=== PATIENT | female | born 1945 | race Caucasian/White ===

== ENCOUNTER → 2016-08-21 | Outpatient (CLI) | payer MEDICARE, BC ==
[~2016-08-21] MED LIST: CRESTOR5 MG PO; HCTZ 25MG TAB25 MG PO; LEVAQUIN 5500 MG/TA1 PO; MULTIPLE VITAMI1 CAP PO; PREDNISONE10 MG PO; PRILOTC PO; PROBIOTIC FORMU1 CAP PO; PROZAC 10MG10 MG PO; THEO-24 20200 MG/CAP PO; VIT D; VITAMIN D31000 IU PO; XOPENEX HF0.045 MG/A IH; ZESTRIL 10MG10 MG PO
== END ==
LOC: MC.RAD 11:40
DX: Z12.31 Encounter for screening mammogram for malignant neoplasm of breast (principal); D24.2 Benign neoplasm of left breast; D24.1 Benign neoplasm of right breast

== ENCOUNTER → 2017-09-09 | Outpatient (CLI) | payer MEDICARE, BC | LOC: MC.RAD 11:30 | DX: Z12.31 Encounter for screening mammogram for malignant neoplasm of breast (principal) ==

== ENCOUNTER → 2018-09-22 | Outpatient (CLI) | payer MEDICARE, BC | LOC: MC.RAD 10:44 | DX: Z12.31 Encounter for screening mammogram for malignant neoplasm of breast (principal); R92.0 Mammographic microcalcification found on diagnostic imaging of breast ==

== ENCOUNTER → 2018-09-28 | Outpatient (CLI) | payer MEDICARE, BC | LOC: MC.RAD 14:00 | DX: R92.0 Mammographic microcalcification found on diagnostic imaging of breast (principal) ==

== ENCOUNTER → 2021-09-02 | Outpatient (CLI) | payer MEDICARE, BC | LOC: MC.RAD 14:00 | DX: N64.9 Disorder of breast, unspecified (principal) ==

== ENCOUNTER → 2021-12-08 | Outpatient (CLI) | payer MEDICARE, BC | LOC: MC.RAD 10:00 | DX: N63.12 Unspecified lump in the right breast, upper inner quadrant (principal); R92.0 Mammographic microcalcification found on diagnostic imaging of breast; R92.8 Other abnormal and inconclusive findings on diagnostic imaging of breast ==

== ENCOUNTER → 2021-12-10 | Outpatient (CLI) | payer MEDICARE, BC | LOC: MC.RAD 06:55 | DX: N63.20 Unspecified lump in the left breast, unspecified quadrant (principal); R92.1 Mammographic calcification found on diagnostic imaging of breast ==

== ENCOUNTER → 2022-01-22 | Outpatient (CLI) | payer MEDICARE, BC ==
[~2022-01-22] MED LIST changes: +COZAAR 25MG25 MG/TAB PO; +PRESERVISION1 SGL PO; +VIVLODEX10 MG PO
== END ==
LOC: MC.RAD 12:52
DX: C50.312 Malignant neoplasm of lower-inner quadrant of left female breast (principal)
CPT/HCPCS: A9520; C1769

== ENCOUNTER 2023-07-19 03:32 | Inpatient (IN) | payer MEDICARE, BC ==
[~2023-07-19] VITALS: Ht 152.4 cm; Wt 67.2 kg
[2023-07-19] VITALS (8 sets, daily range): BP systolic 96–135; BP diastolic 43–66; PULSE 75–92; TEMP 97.4–98.9
[~2023-07-19 03:32] MED LIST changes: +ACIDOPHILIS PO; +CRESTOR 10MG10 MG PO; -CRESTOR5 MG PO; -PROBIOTIC FORMU1 CAP PO
[2023-07-19 04:10] LABS: HEMATOCRIT 34.9 % (37.0-47.0); HEMOGLOBIN 11.3 g/dl (12.5-16.0); MEAN CELL VOLUME 86 fl (80.0-100.0); MEAN CORPUSCULAR HEMOGLOBIN 28 pg (27-31); MEAN CORPUSCULAR HGB CONC 32 g/dl (33.0-37.0); MEAN PLATELET VOLUME 9.6 fl (7.4-10.4); PLATELET COUNT 333 K/mm3 (130-400); RED BLOOD COUNT 4.07 M/mm3 (4.10-5.30); REDCELL DISTRIBUTION WIDTH-CV 15.5 % (11.5-14.5)
[2023-07-19 04:23] LABS: ANISOCYTOSIS 1+; BAND 1 % (0-10); HYPOCHROMIA 1+; LYMPHOCYTE 4 % (20.0-51.0); NEUTROPHILS 91 % (42.0-75.2); PLATELET ESTIMATE NORMAL (NORMAL)
[2023-07-19 04:24] LABS: OVALOCYTES 1+
[2023-07-19 04:58] LABS: ALBUMIN 2.8 gm/dL (3.4-4.8); BILIRUBIN,TOTAL 1.4 mg/dL (0.2-1.2); CALCIUM 8.9 mg/dL (8.4-10.2); CREATININE, serum 1.01 mg/dL (0.57-1.11); TOTAL PROTEIN 6.1 gm/dL (6.2-8.1)
[2023-07-19 04:59] LABS: POTASSIUM 2.6 mmol/L (3.5-4.5)
--- NOTE | 2023-07-19 08:50 | NUR ---
REPORT RECEVIED FROM JOHAN IN ER APPROX 0800, RN NOTIFIED THIS NURSE THAT MED REC WASNT DONE AND THAT WILL BRING PTS MED LIST TO THE FLOOR. PT ON THE FLOOR AND TRANSFERRED TO BED INDEPENDENTLY. PT ON ROOM AIR AND DENIES PAIN OR SHORTNESS OF BREATH AT THIS TIME. FINE CRACKLES HEARD DURING ASSESSMENT. IV TO LEFT AC AND RIGHT WRIST FLUSH WELL WITHOUT COMPLICATIONS. PT DENIES NEEDS AT THIS TIME. PT ORIENTED TO ROOM AND BREAKFAST ORDERED. BED IN LOWEST POSITION, CALL LIGHT IN REACH
[2023-07-19] MEDS ORDERED: ARIMIDEX1 MG PO (09:38)
--- NOTE | 2023-07-19 10:15 | NUR ---
PT REFUSED LOVENOX. PT EDUCATED ON MEDICATION INCLUDING RISK FOR BLOOD CLOTS. PT AMBULATING IN ROOM INDEPENDENTLY AND DENIES NEED FOR LOVENOX AT THIS TIME
--- NOTE | 2023-07-19 12:05 | NUR ---
LAB CALLED AND NOTIFIED THIS NURSE THAT GI PANEL CAME BACK NEGATIVE BUT POSITIVE FOR CDIFF. LAB ASKED THIS NURSE IF A CDIFF ANTIGEN COULD BE ORDERED. DR RIVERA NOTIFIED AND GAVE THIS NURSE A VERBAL ORDER TO PUT IN CDIFF ANTIGEN. PT PLACED IN CONTACT PRECAUTIONS
--- NOTE | 2023-07-19 12:05 | NUR ---
MED REC DONE. PT REPORTS NO LONGER TAKING MELOXICAM PER DR LEDBETTER
[2023-07-19 14:29] LABS: CLOSTRIDIUM DIFF A/B NEG
--- NOTE | 2023-07-19 17:39 | NUR ---
PT GIVEN LAST DOSE OF ORAL POTASSIUM. DR RIVERA NOTIFIED. THIS NURSE ASKED IF PT NEEDED A POTASSIUM RECHECK TODAY AND PROVIDER STATED "CHECK 30 MINS AFTER LAST DOSE"
--- NOTE | 2023-07-19 23:58 | NUR ---
patient lying in bed, alert and oriented x4. pt denies chest pain and shortness of breath. IV in RW and in LAC are patent, sites are clean dry and intact. no skin abnormalities noted. pt ambulating in room with steady gait. pt has no further needs, questions, or concerns at this time. call light within reach, will continue to monitor.
[2023-07-20] VITALS (12 sets, daily range): BP systolic 112–158; BP diastolic 48–73; PULSE 87–98; TEMP 98.2–99
[2023-07-20 06:56] LABS: CREATININE, serum 0.65 mg/dL (0.57-1.11); MAGNESIUM 1.6 mg/dL (1.6-2.6); POTASSIUM 4.3 mmol/L (3.5-4.5)
[2023-07-20 08:06] LABS: BASO % 0.2 % (0.0-2.0); EOS # 0.1 K/mm3 (0.0-0.7); EOS % 0.8 % (0.0-4.0); GRAN # 13.6 K/mm3 (1.4-6.5); LYMPH # 1.2 K/mm3 (1.2-3.4); LYMPH % 7.4 % (20.0-51.0); MEAN CELL VOLUME 86 fl (80.0-100.0); MEAN CORPUSCULAR HGB CONC 32 g/dl (33.0-37.0); MEAN PLATELET VOLUME 9.6 fl (7.4-10.4); MONO % 5.9 % (1.7-9.3); PLATELET COUNT 287 K/mm3 (130-400); RED BLOOD COUNT 3.52 M/mm3 (4.10-5.30); REDCELL DISTRIBUTION WIDTH-CV 15.9 % (11.5-14.5)
[2023-07-20 08:07] LABS: HEMATOCRIT 30.3 % (37.0-47.0); HEMOGLOBIN 9.7 g/dl (12.5-16.0); MEAN CORPUSCULAR HEMOGLOBIN 28 pg (27-31)
--- NOTE | 2023-07-20 08:30 | NUR ---
PT SITTING IN BED UPON ENTERING. ASSESSMENT DONE, MEDS GIVEN PER ORDER. POTASSIUM 4.3 AND OKAY TO DISCONTINUE FLUIDS PER DR RIVERA. PT DENIES PAIN OR DISCOMFORT AT THIS TIME. PT REFUSED LOVENOX, THIS NURSE EDUCATED PT ON RISKS AND PT VERBALIZED UNDERSTANDING. LEFT LOWER LOBES COARSE CRACKLES HEARD DURING ASSESSMENT. SWELLING NOTED TO PTS FINGERS AND THIS NURSE ASKED PT IF SHE WOULD LIKE HER RINGS OFF. PT HAS 2 GOLD RINGS. BOTH REMOVED WITH SOAP AND PUT IN A CLEAR CUP ON PTS BEDSIDE TABLE. PT OKAY WITH THIS AND DENIES NEEDS AT THIS TIME. CALL LIGHT IN REACH, BED IN LOWEST POSITION
--- NOTE | 2023-07-20 10:32 | NUR ---
tree worker met with patient and her , Nazario, P# [phone] to discuss discharge planning. PCP is Dr. Parker and preferred pharmacy is [facility]. Patient has no issues affording medications at this time. Insurance is Medicare and [employer] [facility]. Patient reports she has a DPOA-HC which appoints her , Nazario, as DPOA-HC. Nazario expressed he would bring a copy when he returns from their home. Patient reports she has no DME at home and is independent with [employer]. Patient has a form of transportation to get to and from appointments. Patient would like to return home at time of discharge. Discharge Plan: Home
--- NOTE | 2023-07-20 11:48 | NUR ---
PT PUT RINGS BACK. THIS NURES REMINDED PT OF SWELLING THIS AM AND SHE STATED "ITS OKAY I DONT THINK ITS GOING TO BE THAT BAD". WHILE IN THE ROOM PT NOTED TO HAVE A NEW NONPRODUCTIVE COUGH. 2GRAMS OF MAGNESIUM STARTED PER ORDER. PT AMBULATED TO BATHROOM INDEPENDENTLY WITHOUT ISSUES, GAIT STEADY. PT DENIES NEEDS AT THIS TIME
--- NOTE | 2023-07-20 16:00 | NUR ---
AT NURSES STATION IN CONTACT PPE. EDUCATED ON REMOVING THIS BEFORE LEAVING THE ROOM AND COMPLETING HAND HYGIENE, HE VERBALIZED UNDERSTANDING. TOLD THIS NURSE THAT PT IS STATING THAT SHE IS LEAVING. UPON ENTERING PT IS IN THE PROCESS OF UNDRESSING AND STATES SHES LEAVING. THIS NURSE NOTIFIED PT THAT SHE WILL BE IN THE HOSPITAL ANOTHER NIGHT FOR A PROCEDURE TOMORROW AND PT VERBALIZES UNDERSTANDING. PT HAS BEEN FORGETFUL THROUGHOUT THE SHIFT AND STATES THAT THIS IS HER BASELINE. PT ORIENTED TO PERSON AND TIME BUT STATES THAT SHES IN [place]. PT REORIENTED APPROPRIATELY. PT ENCOURAGED FLUIDS MEALS. PT REPORTS SHE DOESNT LIKE THE FOOD HERE AND THATS WHY SHES NOT EATING MUCH. PT HAS NO OBVIOUS NEEDS AT THIS TIME
--- NOTE | 2023-07-20 21:30 | NUR ---
Patient resting in bed. Denies any pain or needs at this time. Encouraged patient to eat food. Patient ate a little more of her dinner before being done for the evening. Assessment complete. IV in left AC flushes easily with no complcations. IV in right wrist removed due to leaking and not infusing in the vein. Call light and personal items in reach. Bed in low position and bed alarm on.
[2023-07-21] VITALS (13 sets, daily range): BP systolic 132–155; BP diastolic 55–84; PULSE 88–98; TEMP 98–100.2
--- NOTE | 2023-07-21 06:18 | NUR ---
Patient resting in bed. Denies any pain or needs. Patient remians NPO for procedure today with a few sips of water with morning meds. Patient had an uneventful evening. Call light and personal items in reach. Bed in low position.
[2023-07-21 06:53] LABS: BASO % 0.3 % (0.0-2.0); EOS # 0.1 K/mm3 (0.0-0.7); EOS % 0.9 % (0.0-4.0); GRAN # 12.4 K/mm3 (1.4-6.5); GRAN % 86.3 % (42.2-75.2); LYMPH # 0.9 K/mm3 (1.2-3.4); LYMPH % 6.2 % (20.0-51.0); MEAN CELL VOLUME 85 fl (80.0-100.0); MEAN CORPUSCULAR HEMOGLOBIN 28 pg (27-31); MEAN CORPUSCULAR HGB CONC 32 g/dl (33.0-37.0); MEAN PLATELET VOLUME 9.3 fl (7.4-10.4); MONO # 0.8 K/mm3 (0.1-0.6); MONO % 5.7 % (1.7-9.3); PLATELET COUNT 333 K/mm3 (130-400); RED BLOOD COUNT 3.63 M/mm3 (4.10-5.30); REDCELL DISTRIBUTION WIDTH-CV 15.6 % (11.5-14.5)
[2023-07-21 06:57] LABS: HEMATOCRIT 30.9 % (37.0-47.0)
[2023-07-21 07:08] LABS: CALCIUM 9.2 mg/dL (8.4-10.2); CREATININE, serum 0.65 mg/dL (0.57-1.11); POTASSIUM 3.8 mmol/L (3.5-4.5)
--- NOTE | 2023-07-21 10:38 | NUR ---
SHIFT ASSESSMENT COMPLETE. PATIENT RESTING IN BED STATES SHE JUST FEELS TIRED TODAY.NALINI HAD A SLIGHT FEVER 100.3 THIS MORNING, TYLENOL GIVEN PER ORDERS. PATIENT NPO STATUS FOR POSSIBLE EGD TODAY. ALL MORNING MEDS GIVEN PER ORDERS. CONTACT AND CHEMO PRECAUTIONS IN PLACE. CALL LIGHT IN REACH
[2023-07-22] VITALS (12 sets, daily range): BP systolic 132–168; BP diastolic 61–88; PULSE 86–92; TEMP 97.5–98.1
--- NOTE | 2023-07-22 01:25 | NUR ---
PT ALERT AND ORIENTED X2-3. UPON ASSUMING CARE FOR THIS PATIENT SHE IS IN BED AND HAS NORMAL SKIN COLOR AND PER REPORT HAD MILD TEMP ELEVATION. UPON RECHECK WAS FOUND TO BE 100.1, MEDICATED WITH TYLENOL TEMP WNL ONCE RECHECKED. SHIFT ASSESSMENT COMPLETE, MEDICATED PER EMAR. DENIES ANY PAIN AT THIS TIME. PT IS BRADYCARDIC AND IS MONITORED BY TELE. INT TO RIGHT FOREARM, FLUSHING WELL. PLACED ON WATERPROOFER TONIGHT AROUND 2230. EVEN, UNLABORED RESPR. DENIES FURTHER NEEDS AT THIS TIME. CALL LIGHT WITHIN REACH.
--- NOTE | 2023-07-22 03:52 | NUR ---
Notified by tele pt is sinus tacky. Upon checking on pt she was up in restroom. Denies chest pain, states "felt fluttery". No dizziness or nausea.
[2023-07-22 06:57] LABS: BASO % 0.3 % (0.0-2.0); EOS # 0.2 K/mm3 (0.0-0.7); EOS % 1.3 % (0.0-4.0); GRAN # 9.1 K/mm3 (1.4-6.5); GRAN % 78.6 % (42.2-75.2); LYMPH # 1.2 K/mm3 (1.2-3.4); LYMPH % 10.2 % (20.0-51.0); MEAN CELL VOLUME 83 fl (80.0-100.0); MEAN CORPUSCULAR HGB CONC 33 g/dl (33.0-37.0); MEAN PLATELET VOLUME 8.9 fl (7.4-10.4); PLATELET COUNT 303 K/mm3 (130-400); RED BLOOD COUNT 3.45 M/mm3 (4.10-5.30); REDCELL DISTRIBUTION WIDTH-CV 15.5 % (11.5-14.5)
[2023-07-22 06:58] LABS: HEMATOCRIT 28.7 % (37.0-47.0); HEMOGLOBIN 9.4 g/dl (12.5-16.0); MEAN CORPUSCULAR HEMOGLOBIN 27 pg (27-31)
[2023-07-22 07:22] LABS: CALCIUM 9.1 mg/dL (8.4-10.2); CREATININE, serum 0.61 mg/dL (0.57-1.11); POTASSIUM 3.6 mmol/L (3.5-4.5)
--- NOTE | 2023-07-22 08:00 | NUR ---
SHIFT ASSESSMENT COMPLETE. PATIENT UP SITTING ON BENCH IN YOUR WITH AT BEDSIDE. PATIENT CURRENTLY NPO STATUS FOR EGD TODAY. MORNING MEDS HELD TILL AFTER EGD THIS AFTERNOON. PATIENT HAS NO REQUEST OR COMPLAINTS AT THIS TIME. CALL LIGHT IN REACH.
[2023-07-22] MEDS ORDERED: CEPHALEXIN500 M1 PO (10:31)
[2023-07-22] MEDS ORDERED: MONODOX100 PO (10:31)
[2023-07-22] MEDS ORDERED: VANCOCIN H250 MG/CAP PO (10:31)
--- NOTE | 2023-07-22 11:08 | NUR ---
TELEMENTRY TECH CALLED STATING PATIENTS HR IN THE 150'S. NURSE CHECKED ON PATIENT AND PATIENT WAS SLEEPING. CONTACTED ISAI VIDAL AND EKG WAS ORDERED.
--- NOTE | 2023-07-22 12:15 | NUR ---
PATIENT ARRIVED FROM EGD. AMBULATED IND. FROM BED TO ROOM. VSS. PATIENT RESTING IN BED WITH AT BEDSIDE. CALL LIGHT IN REACH
--- NOTE | 2023-07-22 16:33 | NUR ---
travelers' aid worker met with patient and her to review the important message from Medicare regarding patient's rights. Patient understood and did not have any questions. Patient signed the form, SW made a copy, placed original in the chart and provided a copy to the patient. Discharge Plan: Home
== END 2023-07-22 15:30 | disposition home or self-care (01) | DRG 195 ==
LOC: COL.ER 03:32 → MEDICAL 07:18
PROVIDERS: Emergency Medicine; ADMIT Internal Medicine
DX: J18.9 Pneumonia, unspecified organism (principal); E87.6 Hypokalemia; K52.9 Noninfective gastroenteritis and colitis, unspecified; Z11.52 Encounter for screening for COVID-19; D64.9 Anemia, unspecified; R91.1 Solitary pulmonary nodule; K29.70 Gastritis, unspecified, without bleeding; K29.80 Duodenitis without bleeding; I10 Essential (primary) hypertension; F32.A Depression, unspecified; E78.5 Hyperlipidemia, unspecified; E83.42 Hypomagnesemia
CPT/HCPCS: J0696; J1650; J1885; J2704; J3475; J3480; J7030; Q9967

== ENCOUNTER → 2023-12-09 | Outpatient (CLI) | payer MEDICARE, BC ==
[~2023-12-09] MED LIST changes: +ARIMIDEX1 MG PO; +CEPHALEXIN500 M1 PO; +MONODOX100 PO; +VANCOCIN H250 MG/CAP PO
== END ==
LOC: MC.RAD 08:00
DX: Z12.31 Encounter for screening mammogram for malignant neoplasm of breast (principal)

== ENCOUNTER 2024-03-14 11:15 | Outpatient (RCR) | payer MEDICARE, BC | END 2024-03-18 | disposition home or self-care (01) | LOC: WSST | DX: F02.80 Dementia in other diseases classified elsewhere, unspecified severity, without behavioral disturbance, psychotic disturbance, mood disturbance, and anxiety (principal); R91.1 Solitary pulmonary nodule; R51.9 Headache, unspecified ==

== ENCOUNTER 2024-04-11 11:15 | Outpatient (RCR) | payer MEDICARE, BC | END 2024-04-17 | disposition home or self-care (01) | LOC: WSST | DX: R48.9 Unspecified symbolic dysfunctions (principal); G30.9 Alzheimer's disease, unspecified; F02.80 Dementia in other diseases classified elsewhere, unspecified severity, without behavioral disturbance, psychotic disturbance, mood disturbance, and anxiety; R91.1 Solitary pulmonary nodule; R51.9 Headache, unspecified ==

== ENCOUNTER → 2024-05-15 | Outpatient (CLI) | payer MEDICARE, BC ==
[~2024-05-15] MED LIST changes: +Iohexol 300 - 100 ML VIAL IV ONE; +NS 100 ML IV SCH
== END ==
LOC: COL.RAD 13:14
DX: G31.9 Degenerative disease of nervous system, unspecified (principal); G30.9 Alzheimer's disease, unspecified; F02.80 Dementia in other diseases classified elsewhere, unspecified severity, without behavioral disturbance, psychotic disturbance, mood disturbance, and anxiety; R79.89 Other specified abnormal findings of blood chemistry; R91.1 Solitary pulmonary nodule
CPT/HCPCS: Q9967